=== PATIENT | male | born 1975 | race Caucasian/White ===

== ENCOUNTER 2022-08-31 07:32 | Inpatient (IN) ==
--- NOTE | 2022-08-24 10:26 | Anesthesiology Consultation ---
Date of Service August 24, 2022 Assessment & Plan (1) Encounter for pre-operative examination: Chart Review Chart Review: Acceptable Risk for Surgery and Patient NOT seen in Pre Admission Testing -COVID screening: Per PAT nursing assessment on 08/24/22. No known COVID-19 positive contacts or current COVID-19 related symptoms. Travel screen negative. Patient vaccinated for Covid. At surgeon discretion if preop Covid testing being done. History Surgery Operation Date: 08/31/22 07:15 Proposed Procedures p Laparoscopic Partial Right Colectomy Possible Open - Charles Nicholas MD Height/Weight Height: 5 ft 10 in Weight: 88.451 kg Allergies Allergy/AdvReac Type Severity Reaction Status Date / Time No Known Allergies Allergy Verified 08/24/22 08:35 Medications Home Medications Medication Instructions Recorded Confirmed Last Taken albuterol sulfate 90 mcg/actuation 1 inh inhalation QID PRN Congestion 08/24/22 08/24/22 Unknown aerosol inhaler loratadine 10 mg capsule 10 mg PO DAILY PRN Congestion 08/24/22 08/24/22 Unknown Past Medical History Medical History Asthma Rare res inhaler use Colonic polyp Reason for procedure on 08/31/22 Hiatal hernia Prostate nodule PSA ordered per pt, has not yet been able to get done Seasonal allergies Past Surgical History Surgical History History of colonoscopy History of esophagogastroduodenoscopy (EGD) History of tooth extraction Hx of removal of cyst left breast area x2 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
[~2022-08-31 07:32] MED LIST: LR 15ML/HR IV SCH; ceFAZolin 2000MG 2,000 MG/15 ML SYR IV SCH
--- NOTE | 2022-08-31 08:57 | History & Physical Bridge Note ---
Date of Service August 31, 2022 History & Physical Bridge Note I have examined the patient, reviewed the History & Physical and in the interval since the performance of the History & Physical I have noted the following changes of clinical significance: no changes noted
[2022-08-31] MEDS ORDERED: fentaNYL citrate 100 MCG/2 ML VIAL ONE ×3 (09:19→12:05)
[2022-08-31] MEDS ORDERED: MIDAZOLAM HCL 1 MG/ML 2ML VIAL ONE (09:19)
[2022-08-31] MEDS ORDERED: LABETALOL HCL IV 5 MG/ML 20ML IV PRN (09:29)
[2022-08-31] MEDS ORDERED: ATROPINE SULFATE 0.1 MG/ML 10ML SYR IV PRN (09:29)
[2022-08-31] MEDS ORDERED: KETOROLAC 30 MG/ML VIAL IV PRN (09:29)
[2022-08-31] MEDS ORDERED: ONDANSETRON INJ 2 MG/ML 2 ML VIAL IV PRN ×2 (09:29→13:50)
[2022-08-31] MEDS ORDERED: PROMETHAZINE HCL 12.5 MG in SODIUM CHLORIDE 0.9% 50 ML IV PRN ×2 (09:29→13:50)
--- NOTE | 2022-08-31 09:30 | History & Physical Report ---
Date of Service August 31, 2022 Assessment & Plan (1) Colonic polyp: Plan 46-year-old with colon polyp, failed endoscopic resection. Presents for laparoscopic ileocecectomy. Risks and benefits of the surgery were discussed as well as postoperative course, restrictions, and outcomes. All his questions were answered, he is agreeable to proceed. Consent has been obtained. History of Present Illness Primary Care Provider: Wilma Crow MD 46-year-old gentleman with a large cecal villous adenoma, unable to be removed endoscopically. Now presents for ileocecectomy to remove the polyp. He denies fevers and chills, no chest pain or shortness of breath. He denies any other complaints. Allergies Allergy/AdvReac Type Severity Reaction Status Date / Time No Known Allergies Allergy Verified 08/31/22 07:59 Home Medications Medication Instructions Recorded Confirmed Type albuterol sulfate 90 mcg/actuation 1 inh inhalation QID PRN Congestion 08/24/22 08/31/22 History aerosol inhaler loratadine 10 mg capsule (Claritin 10 mg PO DAILY PRN Congestion 08/24/22 08/31/22 History Liqui-Gel) Past Med/Surg History Medical History (Updated 08/31/22 @ 09:29 by Charles Nicholas MD) Asthma Rare res inhaler use Colonic polyp Reason for procedure on 08/31/22 Hiatal hernia Prostate nodule PSA ordered per pt, has not yet been able to get done Seasonal allergies Surgical History History of colonoscopy History of esophagogastroduodenoscopy (EGD) History of tooth extraction Hx of removal of cyst left breast area x2 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 > [facility] general Social History Smoking Status: Never smoker Second Hand Exposure: No; Do You Dip or Chew Tobacco: No; Tobacco Cessation Education Requested by Patient: No Hx Alcohol Use: Yes Alcohol type: beer Hx Substance Use: No Preferred Language: Romansh Communication Ability: Effective Rock Contractor Required: No Beliefs That Will Affect Care: None Current Living Situation: Spouse Other Information That Helps Us Care for You: No Feels Safe at Home: Yes Safety Concerns: Feels Safe At This Time Assistive Devices: Contacts and Glasses Review of Systems Review of Systems: All systems reviewed & are unremarkable except as noted in HPI & below Physical Exam Constitutional: WD/WN, vitals as above Eyes: PERRL, conjunctivae normal, anicteric sclerae Neck: trachea midline, no thyromegaly Respiratory: normal respiratory effort, lungs clear to auscultation Cardiovascular: RRR, no murmur, no edema Gastrointestinal (Abdomen): normal bowel sounds, soft, nontender, no hepatosplenomegaly Skin: no rashes, warm and dry Psychiatric: A+Ox3, euthymic affect Results & Data Results & Data ([facility]) Vital Signs (Past 12 Hours) Vital Signs Temp Pulse Resp BP Pulse Ox O2 Del Method 08/31/22 08:02 36.8 C 103 H 20 163/106 H 98 Room Air
[2022-08-31] MEDS ORDERED: BUPIVACAINE 0.5 % 5 MG/1 ML MPF 30ML VIAL ONE (09:46)
[2022-08-31] MEDS ORDERED: PHENYLEPHRINE 100MCG/ML 5ML SYR ONE (12:01)
--- NOTE | 2022-08-31 12:06 | Post Operative Brief Note ---
Immediate Post Op Note v1 Date of Surgery August 31, 2022 Pre & Post Diagnosis Operation Date: 08/31/22 08:55 Pre-Op Diagnosis: Villous Adenoma of Colon Post-Op Diagnosis: Villous Adenoma of Colon I identified the patient and participated in the time-out.: Yes Procedure Operation Date: 08/31/22 08:55 Actual Procedures p Laparoscopic Partial Right Colectomy(Not Applicable) - Charles Nicholas MD Surgeon Charles Nicholas MD Jack Spinner CINDY Francis assisted with tissue retraction, camera op, closure Estimated Blood Loss 5 Findings Consistent with Post-Op Diagnosis Drains Goodwin Catheter
--- NOTE | 2022-08-31 12:12 | Operative Report ---
Post Operative Report Pre & Post Diagnosis Operation Date: 08/31/22 08:55 Pre-Op Diagnosis: Villous Adenoma of Colon Post-Op Diagnosis: Villous Adenoma of Colon I identified the patient and participated in the time-out.: Yes Procedure Operation Date: 08/31/22 08:55 Actual Procedures p Laparoscopic Partial Right Colectomy(Not Applicable) - Charles Nicholas MD Surgeon Charles Nicholas MD Liquor Bridge Operator Helper CINDY Francis assisted with tissue retraction, camera op, closure Estimated Blood Loss 5 Findings Consistent with Post-Op Diagnosis Villous adenoma noted in the cecum on the specimen. Specimens Terminal ileum, cecum, appendix, part of ascending colon Drains None Anesthesia Type General Complications No immediate complications Description of Procedure Patient was taken to the operating room, placed supine on the operating table. A timeout was performed, perioperative antibiotics were administered, SCD boots were placed. After adequate anesthesia and analgesia was obtained, Goodwin catheter was placed, and the patient was prepped and draped in normal sterile fashion. Incision was made in the supraumbilical region and carried down to the level of the fascia. The fascia was grasped with a trach hook, and a varies needle was used to enter the abdominal cavity. The abdomen was insufflated to pressure 15 mmHg, and the 12 mm trochars placed this location. A 10 mm 30 degree la paroscope was placed into the abdominal cavity. The abdomen was surveyed. Patient was airplane to the left. 5 mm trochars were placed in the left lower, left upper, and right lower quadrants under direct visualization. The cecum was identified and grasped and retracted medially. The harmonic scalpel was used to medialize the colon from the white line of Toldt. This was done up to the hepatic flexure. Spot was selected on the terminal ileum, and the terminal ileum was divided with the Endo THOMAS stapler. Using the harmonic scalpel, we then took down the mesentery of the appendix, distal terminal ileum, and cecum. The ileocolic vessel was identified and taken with a vascular load of the Endo THOMAS stapler. Once the mesentery was dissected, site was selected on the right side. Incision was made in a transverse fashion in this location, and was carried down to the level of the fascia. The fascia was opened to its fullest extent, and a wound protector was placed. The colon was delivered out through the wound protector onto the abdomen. A site was selected distal to the ileocecal valve and this was transected with the THOMAS stapler. The specimen was opened on the back table and noted to contain the polyp. The terminal ileum was then brought out, and a [id number] functional end-to-end anastomosis was created between the terminal ileum and the right colon with a THOMAS stapler. The common channel was then closed in 2 layers. Inner layer of 3-0 Vicryl running mucosal suture and outer layer of Lembert style 3-0 silk interrupted sutures. Attention was turned to hemostasis which was excellent. This was reduced back into the abdominal cavity, and the fascia in the site was closed with a 0 PDS running suture. The abdomen was then insufflated and the camera was placed back into the abdominal cavity. We inspected the anastomosis which appeared viable in good position. Again hemostasis was excellent. All trochars removed under direct visualization, and the abdomen was desufflated. The 12 mm port site was closed with 0 Vicryl suture. The skin was closed with running 4-0 Monocryl subcuticular stitch. Dermabond was applied. He tolerated the procedure without complication, transferred in stable condition to the PACU. All instrument, needle, sponge counts were correct at the end of the case. My licensed physical therapy assistant was necessary throughout the procedure for tissue retraction, possible camera operation, and closure of the wounds. I understand that section 1842(b)(7)(D) of the Social Security act generally prohibits Medicare physician fee schedule payment for the services of assistants at surgery in teaching hospitals when qualified residents are available to furnish such services. I certify that the services for which payment is claimed were medically necessary and that no qualified resident was available to perform the services. I further understand that these services are subject to postpayment review by the Medicare carrier. I attest to the content of the Intraoperative Record and any orders documented therein. Any exceptions are noted below.
[2022-08-31] MEDS ORDERED: DEXAMETHASONE SOD INJ 4 MG/ML VIAL ONE (12:25)
[2022-08-31] MEDS ORDERED: LIDOCAINE 2% MPF LOCAL 5 ML VIAL INFIL ONE (12:25)
[2022-08-31] MEDS ORDERED: PROPOFOL IV EMULSION 10 MG/ML 20 ML VIAL IV ONE (12:25)
[2022-08-31] MEDS ORDERED: NEOSTIGMINE METHYLSULFATE 1 MG/ML 10ML VIAL ONE (12:25)
[2022-08-31] MEDS ORDERED: ONDANSETRON INJ 2 MG/ML 2 ML VIAL ONE (12:25)
[2022-08-31] MEDS ORDERED: ROCURONIUM BROMIDE 10 MG/ML 5 ML VIAL IV ONE (12:25)
[2022-08-31] MEDS ORDERED: GLYCOPYRROLATE 0.2 MG/ML VIAL ONE (12:25)
[2022-08-31] MEDS: HYDROmorphone INJ 1 MG/ML SYRINGE IV PRN ×4 (12:40→13:11)
--- NOTE | 2022-08-31 13:10 | Anesthesiology Progress Note ---
Date of Service August 31, 2022 Anesthesia Post Procedure Vital Signs Vital Signs: Temp Pulse Pulse Resp BP Pulse Ox O2 Del Method 08/31/22 13:05 36.9 C 73 12 120/91 95 Room Air 08/31/22 12:55 66 14 128/88 97 Oxymask 08/31/22 12:45 65 11 L 127/97 97 Oxymask 08/31/22 12:35 71 14 132/100 99 Oxymask 08/31/22 12:29 36.3 C L 68 16 141/98 H 98 Oxymask 08/31/22 08:02 36.8 C 103 H 20 163/106 H 98 Room Air O2 Flow Rate 08/31/22 13:05 08/31/22 12:55 4 08/31/22 12:45 4 08/31/22 12:35 6 08/31/22 12:29 6 08/31/22 08:02 Pain Intensity Abdomen: Pain Intensity: 4 Transfer of Care Handoff Completed per policy Notes Mental Status: alert / awake / arousable Patient Amnestic to Procedure: Yes Nausea / Vomiting: adequately controlled Pain: adequately controlled Airway Patency, RR, SpO2: stable & adequate BP & HR: stable & adequate Hydration State: stable & adequate Anesthetic Complications: no major complications apparent
[2022-08-31] MEDS ORDERED: SODIUM CHLORIDE 0.9% 50 ML BAG ONE (13:13)
[2022-08-31] MEDS ORDERED: PROMETHAZINE HCL INJ 25 MG/ML 1 ML VIAL ONE (13:14)
[2022-08-31] MEDS ORDERED: MoRPHine SULFATE 2 MG/ML CARP IV PRN (13:50)
[2022-08-31] MEDS ORDERED: diphenhydrAMINE Capsule 25 MG CAP PO PRN (13:50)
[2022-08-31] MEDS ORDERED: oxyCODONE HCL IR 5 MG TAB (IMMEDIATE RELEASE) PO PRN (13:50)
[2022-08-31] MEDS: LACTATED RINGER'S 1,000 ML IV SCH ×2 (14:01→22:51)
[2022-08-31] MEDS: KETOROLAC 30 MG/ML VIAL IV PRN (17:16)
[2022-09-01 06:51] LABS: Basophils # (auto) 0.02 K/uL (0-0.2); Basophils % (auto) 0.3 %; Eosinophils # (auto) 0.04 K/uL (0-0.50); Eosinophils % (auto) 0.6 %; Hematocrit (blood only) 40.5 % (40.1-51.0); Hemoglobin 13.6 g/dl (14.0-18.0); Immature Granulocytes # (auto) 0.02 K/uL (0.00-0.02); Immature Granulocytes % (auto) 0.3 %; Lymphocytes # (auto) 1.34 K/uL (1.2-3.4); Lymphocytes % (auto) 18.5 %; Mean Corpuscular Hemoglobin 30.4 pg (25.0-34.0); Mean Corpuscular Hgb Conc 33.6 g/dL (32.0-36.0); Mean Corpuscular Volume 90.4 fL (80.0-100.0); Mean Platelet Volume 10.8 fL (9.4-12.4); Monocytes # (auto) 0.68 K/uL (0.24-0.82); Monocytes % (auto) 9.4 %; Neutrophils # (auto) 5.16 K/uL (1.4-6.5); Neutrophils % (auto) 70.9 %; Platelet Count 160 K/uL (130-400); RDW Coefficient of Variation 12.7 % (11.5-14.5); RDW Standard Deviation 41.8 fL (36.4-46.3); Red Blood Count 4.48 M/uL (4.63-6.08); White Blood Count 7.26 K/ul (4.8-10.8)
[2022-09-01 07:25] LABS: Albumin Globulin Ratio 1.9 (0.9-2); Albumin Level 3.7 gm/dl (3.4-5.0); BUN Creatinine Ratio 10.8 (10-20); Bilirubin,Total 0.8 mg/dl (0.2-1.0); Calcium 8.5 mg/dl (8.5-10.1); Creatinine Clr Calc Pharmacy 72.5 ml/min; Est GFR (Non-African American) 59.5 ml/min; Potassium 4.1 mmol/L (3.5-5.1); Total Protein 5.7 gm/dl (6.0-8.3)
[2022-09-01] MEDS: ENOXAPARIN INJ 40 MG/0.4 ML SYR SQ SCH (07:41)
[2022-09-01] MEDS: KETOROLAC 30 MG/ML VIAL IV PRN ×2 (07:41→17:35)
[2022-09-01] MEDS: LACTATED RINGER'S 1,000 ML IV SCH (07:48)
--- NOTE | 2022-09-01 08:23 | Surgery Progress Note ---
Date of Service September 01, 2022 Assessment & Plan (1) Colonic polyp: Plan: POD#1 s/p lap ileocecectomy doing well continue clears, awaiting return of bowel function encourage ambulation/incentive spirometry pain control with IV and p.o. medicine DVT prophylaxis with SCD boots and Lovenox Admission and Anticipated Discharge Date Admission Date: August 31, 2022 Subjective POD#1 s/p laparoscopic ileocecectomy for a large polyp carpeting cecum. Doing well. Denies nausea or vomiting. Tolerating clears. No fevers or chills. Physical Exam Physical Exam: NAD/ A&O x3 abdomen: Soft, mild distention, mild tenderness to palpation incisions Incisions clean/ dry / intact, Dermabond in place Results & [facility] ([facility]) Vital Signs (Past 12 Hours) Vital Signs Temp Pulse Pulse Resp BP Pulse Ox O2 Del Method 09/01/22 07:22 36.7 C 74 16 127/86 98 Nasal Cannula 09/01/22 04:08 36.7 C 65 20 123/86 98 Nasal Cannula 08/31/22 21:39 36.7 C 94 H 20 120/73 96 Nasal Cannula O2 Flow Rate 09/01/22 07:22 1 09/01/22 04:08 2 08/31/22 21:39 2 Laboratory Results 09/01/22 09/01/22 08/31/22 Range/Units 06:27 06:27 07:51 WBC 7.26 (4.8-10.8) K/ul RBC 4.48 L (4.63-6.08) M/uL Hgb 13.6 L (14.0-18.0) g/dl Hct 40.5 (40.1-51.0) % MCV 90.4 (80.0-100.0) fL MCH 30.4 (25.0-34.0) pg MCHC 33.6 (32.0-36.0) g/dL RDW Std Deviation 41.8 (36.4-46.3) fL RDW Coeff of Genie 12.7 (11.5-14.5) % Plt Count 160 (130-400) K/uL MPV 10.8 (9.4-12.4) fL Immature Gran % (Auto) 0.3 % Neut % (Auto) 70.9 % Lymph % (Auto) 18.5 % [place] % (Auto) 9.4 % Eos % (Auto) 0.6 % Baso % (Auto) 0.3 % Neut # (Auto) 5.16 (1.4-6.5) K/uL Lymph # (Auto) 1.34 (1.2-3.4) K/uL [place] # (Auto) 0.68 (0.24-0.82) K/uL Eos # (Auto) 0.04 (0-0.50) K/uL Baso # (Auto) 0.02 (0-0.2) K/uL Immature Gran # (Auto) 0.02 (0.00-0.02) K/uL Sodium 142 (136-145) mmol/L Potassium 4.1 (3.5-5.1) mmol/L Chloride 108 H (98-107) mmol/L Carbon Dioxide 29 (21-32) mmol/L Anion Gap 5 (3-11) BUN 15 (6-23) mg/dl Creatinine 1.39 (0.6-1.4) mg/dl Est Cr Clr Drug Dosing 72.5 ml/min Est GFR ( Amer) 69.0 ml/min Est GFR (Non-Af Amer) 59.5 ml/min BUN/Creatinine Ratio 10.8 (10-20) Glucose 103 H (70-99(Fasting)) mg/dl Calcium 8.5 (8.5-10.1) mg/dl Total Bilirubin 0.8 (0.2-1.0) mg/dl AST 14 (13-39) U/L ALT 21 (7-52) U/L Alkaline Phosphatase 39 (34-104) U/L Total Protein 5.7 L (6.0-8.3) gm/dl Albumin 3.7 (3.4-5.0) gm/dl Globulin 2.0 L (2.5-4.0) gm/dl Albumin/Globulin Ratio 1.9 (0.9-2) Blood Type O Positive Antibody Screen NEGATIVE
[2022-09-02 08:05] LABS: Basophils # (auto) 0.05 K/uL (0-0.2); Basophils % (auto) 0.7 %; Eosinophils # (auto) 0.13 K/uL (0-0.50); Eosinophils % (auto) 1.9 %; Hematocrit (blood only) 44.5 % (40.1-51.0); Hemoglobin 14.6 g/dl (14.0-18.0); Immature Granulocytes # (auto) 0.01 K/uL (0.00-0.02); Immature Granulocytes % (auto) 0.1 %; Lymphocytes % (auto) 23.7 %; Mean Corpuscular Hgb Conc 32.8 g/dL (32.0-36.0); Mean Corpuscular Volume 91.4 fL (80.0-100.0); Mean Platelet Volume 10.9 fL (9.4-12.4); Monocytes # (auto) 0.45 K/uL (0.24-0.82); Monocytes % (auto) 6.7 %; Neutrophils % (auto) 66.9 %; Platelet Count 181 K/uL (130-400); RDW Coefficient of Variation 12.4 % (11.5-14.5); RDW Standard Deviation 41.2 fL (36.4-46.3); Red Blood Count 4.87 M/uL (4.63-6.08); White Blood Count 6.74 K/ul (4.8-10.8)
[2022-09-02] MEDS: ENOXAPARIN INJ 40 MG/0.4 ML SYR SQ SCH (08:15)
[2022-09-02 08:38] LABS: Albumin Level 4.1 gm/dl (3.4-5.0); Bilirubin,Total 0.8 mg/dl (0.2-1.0); Calcium 8.7 mg/dl (8.5-10.1)
[2022-09-02 08:44] LABS: Albumin Globulin Ratio 1.6 (0.9-2); BUN Creatinine Ratio 10.6 (10-20); Creatinine Clr Calc Pharmacy 71.5 ml/min; Est GFR (African American) 67.8 ml/min; Est GFR (Non-African American) 58.5 ml/min; Globulin 2.5 gm/dl (2.5-4.0); Total Protein 6.6 gm/dl (6.0-8.3)
[2022-09-02] MEDS: KETOROLAC 30 MG/ML VIAL IV PRN (11:52)
[2022-09-02] MEDS ORDERED: oxyCODONE/ACETAMINOPHEN 5mg/325mg TAB PO PRN (13:13)
--- NOTE | 2022-09-02 14:15 | Surgery Progress Note ---
Date of Service September 02, 2022 Assessment & Plan (1) Colonic polyp: Plan: POD#2 s/p lap ileocecectomy doing well advance diet as tolerated encourage ambulation/incentive spirometry switch to PO pain meds DVT prophylaxis with SCD boots and Lovenox possible home tonight or tomorrow morning Admission and Anticipated Discharge Date Admission Date: August 31, 2022 Subjective POD#2 s/p laparoscopic ileocecectomy for a large polyp carpeting cecum. Doing well. Denies nausea or vomiting. Tolerating clears. No fevers or chills.Had bowel movement this morning. Passing flatus. Physical Exam Physical Exam: NAD/ A&O x3 abdomen: Soft, mild distention, mild tenderness to palpation incisions Incisions clean/ dry / intact, Dermabond in place Results & Data ([facility]) Vital Signs (Past 12 Hours) Vital Signs Temp Pulse Resp BP Pulse Ox O2 Del Method 09/02/22 07:48 36.6 C 83 16 139/97 96 Room Air
--- NOTE | 2022-09-07 09:05 | Discharge Summary ---
Date of Service September 07, 2022 Admission HPI Per Admitting Provider 46-year-old gentleman with a large cecal villous adenoma, unable to be removed endoscopically. Now presents for ileocecectomy to remove the polyp. He denies fevers and chills, no chest pain or shortness of breath. He denies any other complaints. Principal Diagnosis Cecal villous adenoma Discharge Data Allergies Allergy/AdvReac Type Severity Reaction Status Date / Time bee venom protein (honey bee) Allergy Severe swelling Verified 08/31/22 09:45 throat No Known Drug Allergies Allergy Unknown Verified 08/31/22 09:45 Procedures Performed Operation Date: 08/31/22 08:55 Actual Procedures p Laparoscopic Partial Right Colectomy(Not Applicable) - Charles Nicholas MD Hospital Course (1) Colonic polyp: Patient presented to hospital for elective laparoscopic ileocecetomy for large villous adenoma of the cecum unable to be resected via colonscopy by Dr. Charles Nicholas. Patient tolerated procedure without difficulty and was transferred to recovery then to medical/surgical floor for postoperative care. IV Morphine and PO Percocet were ordered prn pain, clear liquid diet, incentive spirometry, and SCDs and Lovenox for Dvt Prophylaxis. POD # 1, afebrile, vss, clear liquid diet continued as bowel function did not return yet. Encouraged ambulating. POD # 2 , afebrile, vss, with positive return of bowel function with bowel movement and flatus. Diet advanced as tolerated. Patient was discharged home in evening of POD # 2 in stable condition. Total Time Total Time Spent Total Time Spent (In Minutes): 30 Total Time Includes: Examination of the Patient, Discharge Planning and Med ication Reconciliation Discharge Plan Discharge Items Patient Disposition: Home - Self-Care Reason For Visit: Villous Adenoma of Colon Discharge Diagnosis: villous adenoma of colon Activity: Per Instructions section Lifting: No more than 10 pounds and Wait until after follow-up appointment Sexual Activity: Wait until after follow-up appointment Exercise/Sports: Wait until after follow-up appointment Non-emergency contact: Surgeon Call non-emergency contact if: you have any medication questions, your symptoms worsen, your pain is not controlled, your pain is worsening, your pain is unusual for you, your pain is concerning for you, your temperature is above 101.5, your wound has increased redness, your wound has increased drainage and your wound pain has increased Follow-up/Referrals: Wilma Crow MD [Primary Care Provider] - Diet: Low Fiber Addtl Attending Provider Instructions: ACTIVITY RECOMMENDATIONS: * Walk as much as possible. * No heavy lifting (>20 lbs.) for 3 weeks. SPECIAL CARE INSTRUCTIONS: * Ice to incision site on and off if needed. * May shower in 24 hours. Let water run over area and pat dry. No bathing/pools for 2 weeks * Leave dermabond in place. * Call the surgeon's office with any questions or concerns - (ex. temperature higher than 101 degrees F, excessive bleeding or pain). MEDICATIONS: Resume previous medications unless instructed otherwise by your surgeon. * Ibuprofen 600 mg every 6 hours with food * Percocet 1 every 4 hours, as needed for pain FOLLOW UP VISIT: If not already scheduled, please call the office to schedule a two week follow- up appointment. Office number Pending Studies at Discharge: No Stand-Alone Forms: My [facility], Pain - Opioid Pain Management, Smoking Cessation Medications and DC Order Prescriptions: New oxycodone-acetaminophen [Percocet] 5-325 mg tablet 1 tab PO Q6H PRN (Reason: pain) Qty: 15 0RF Continued albuterol sulfate 90 mcg/actuation Hfa Aerosol Inhaler 1 inh INHALATION QID PRN (Reason: Congestion) Claritin Liqui-Gel 10 mg Capsule 10 mg PO DAILY PRN (Reason: Congestion) epinephrine [EpiPen] 0.3 mg/0.3 mL Auto-Injector 0.3 mg IM ONCE PRN (Reason: Anaphylaxis) Discharge Orders: Discharge Order (Routine); Ordered 09/02/22 Ordered By: Charles John/Other Patient Handouts: Low-Fiber Diet Admission Data Admit Date/Time: 08/31/22 12:18 Attending Provider: Charles Nicholas Admit Provider: Charles Nicholas Primary Care Provider: Wilma Crow Other Interventions: Discharge Summary Assessment (RN) Last Done: 09/02/22 17:08
== END 2022-09-02 17:59 | disposition home or self-care (01) | DRG 331 ==
LOC: ASU 07:32 → 3N 12:18